=== PATIENT | male | born 1995 | race African-American/Black ===

== ENCOUNTER 2022-03-17 12:09 | Emergency (ER) | payer MEDICAID | END 2022-03-17 13:04 | disposition home or self-care (01) | LOC: ERS 12:09 | DX: R56.9 Unspecified convulsions (principal); F17.210 Nicotine dependence, cigarettes, uncomplicated; Z79.899 Other long term (current) drug therapy | CPT/HCPCS: 99283 ==

== ENCOUNTER 2022-03-24 17:30 | Emergency (ER) | payer MEDICAID, SELFPAY | END 2022-03-24 20:25 | disposition left against medical advice (07) | LOC: ERS 17:30 | DX: Z53.21 Procedure and treatment not carried out due to patient leaving prior to being seen by health care provider (principal) ==

== ENCOUNTER 2025-06-28 00:51 | Emergency (ER) | payer OTHER | END 2025-06-28 02:34 | disposition home or self-care (01) | LOC: ERS 00:51 | DX: R11.2 Nausea with vomiting, unspecified (principal); F17.210 Nicotine dependence, cigarettes, uncomplicated | CPT/HCPCS: 99283; Q0162 ==